=== PATIENT | male | born 1985 | race African-American/Black ===

== ENCOUNTER 2021-01-30 12:52 | Emergency (ER) | payer OTHER ==
[~2021-01-30] VITALS: Ht 182.9 cm; Wt 82.0 kg
[2021-01-30 13:52] VITALS: BP 145/97
[2021-01-30] MEDS ORDERED: TETANUS, DIPHTHERIA, PERTUSSIS VAC/PF 0.5ML (>10YR OLD) IM ONE (14:00)
[2021-01-30] MEDS ORDERED: CIPR500S3 PO (14:08)
[2021-01-30] MEDS ORDERED: CIPR500T5 MT (14:32)
== END 2021-01-30 14:40 | disposition home or self-care (01) ==
LOC: ER 13:22
DX: S91.331A Puncture wound without foreign body, right foot, initial encounter (principal); W45.0XXA Nail entering through skin, initial encounter; Y93.89 Activity, other specified; Y92.89 Other specified places as the place of occurrence of the external cause; Y99.8 Other external cause status
CPT/HCPCS: 90471; 90715; 99283

== ENCOUNTER 2022-09-04 14:39 | Emergency (ER) | payer OTHER ==
[~2022-09-04] VITALS: Ht 182.9 cm; Wt 79.0 kg
[~2022-09-04 14:39] MED LIST: CIPR500T5 MT
[2022-09-04 14:42] VITALS: O2SAT 100
[2022-09-04] MEDS ORDERED: ACETAMINOPHEN 325MG TABLET PO ONE (16:30)
[2022-09-04] MEDS ORDERED: NAPR220C61 MT (17:15)
[2022-09-04 17:53] VITALS: BP 127/90; PULSE 87; RESP 20; TEMP 98.1
== END 2022-09-04 17:58 | disposition home or self-care (01) ==
LOC: ER 14:39
DX: S09.90XA Unspecified injury of head, initial encounter (principal); M25.512 Pain in left shoulder; X58.XXXA Exposure to other specified factors, initial encounter; Y93.89 Activity, other specified; Y92.89 Other specified places as the place of occurrence of the external cause; Y99.8 Other external cause status
CPT/HCPCS: 73030; 99284

== ENCOUNTER 2023-01-04 08:56 | Emergency (ER) | payer OTHER ==
[~2023-01-04] VITALS: Ht 182.9 cm; Wt 79.0 kg
[~2023-01-04 08:56] MED LIST changes: +NAPR220C61 MT
[2023-01-04 09:16] VITALS: TEMP 97.8; O2SAT 98
[2023-01-04 10:30] VITALS: BP 141/96; PULSE 74; RESP 18
[2023-01-04] MEDS ORDERED: HYDROCODONE/ACETAMINOPHEN 7.5/325MG TABLET PO ONE (10:30)
[2023-01-04] MEDS ORDERED: NAPR-1176 MT (10:38)
[2023-01-04] MEDS ORDERED: CYCL5TAB MT (10:38)
== END 2023-01-04 11:51 | disposition home or self-care (01) ==
LOC: ER 09:07
DX: M54.2 Cervicalgia (principal); M25.512 Pain in left shoulder; F12.10 Cannabis abuse, uncomplicated
CPT/HCPCS: 99283; Z7610

== ENCOUNTER 2023-05-26 02:18 | Emergency (ER) | payer OTHER, BC ==
[~2023-05-26] VITALS: Ht 182.9 cm; Wt 82.0 kg
[~2023-05-26 02:18] MED LIST changes: +CYCL5TAB MT; +NAPR-1176 MT
[2023-05-26 02:35] VITALS: BP 173/114; PULSE 82; RESP 18; TEMP 98.6; O2SAT 100
[2023-05-26 03:06] LABS: BASOPHILS % 0.4 % (0.0-2.0); EOSINOPHILS % 1.1 % (0.0-5.0); HEMATOCRIT. 40.9 % (42.0-52.0); HEMOGLOBIN. 13.7 g/dL (14.0-18.0); LYMPHOCYTES % 39.9 % (20.0-50.0); MEAN CORPUSCULAR HEMOGLOBIN 31.4 pg (28.0-32.0); MEAN CORPUSCULAR HGB CONC 33.5 g/dL (31.0-37.0); MEAN CORPUSCULAR VOLUME 93.5 fL (80.0-94.0); MEAN PLATELET VOLUME 7.8 fl (7.4-10.4); MONOCYTES % 8.8 % (2.0-8.0); NEUTROPHILS % 49.8 % (40.0-76.0); PLATELET 201 x1000/uL (130-400); RED BLOOD CELL COUNT 4.37 mill/uL (4.7-6.1); RED CELL DISTRIBUTION WIDTH 13.3 % (11.6-14.6); WHITE BLOOD COUNT 7.2 x1000/uL (4.5-11.0)
[2023-05-26 03:23] LABS: ALANINE AMINOTRANSFERASE 8 IU/L (10-49); ALBUMIN 4.5 g/dL (3.2-4.8); ASPARTATE AMINOTRANSFERASE 15 IU/L (<34); BILIRUBIN TOTAL 0.4 mg/dL (0.1-1.0); CALCIUM 8.6 mg/dL (8.7-10.4); CARBON DIOXIDE 30 mEq/L (21-32); CHLORIDE 106 mEq/L (98-107); GLUCOSE 92 mg/dL (70-105); POTASSIUM 3.9 mEq/L (3.5-5.1); PROTEIN TOTAL 7.3 g/dL (6.0-8.3); SODIUM 139 mEq/L (136-145); TROPONIN I HIGH SENSITIVITY 5 ng/L (3.0-53); UREA NITROGEN BLOOD 22 mg/dL (9-23)
[2023-05-26 04:50] LABS: CLARITY URINE CLEAR (CLEAR); COLOR URINE YELLOW (YELLOW); GLUCOSE URINE NEGATIVE (NEGATIVE); KETONES URINE NEGATIVE (NEGATIVE); LEUKOCYTE ESTERASE URINE TRACE (NEGATIVE); NITRITE URINE NEGATIVE (NEGATIVE); OCCULT BLOOD URINE NEGATIVE (NEGATIVE); PROTEIN URINE NEGATIVE (NEGATIVE); SPECIFIC GRAVITY URINE 1.026 (1.005-1.030); UROBILINOGEN URINE 0.2 E.U./dL (0.2-1.0)
[2023-05-26 04:59] LABS: BACTERIA URINE NONE SEEN; RBC URINE NONE SEEN /hpf (0-2); SQUAMOUS EPITHELIAL CELL URINE RARE /lpf (RARE/1+); WBC URINE 0-2 /hpf (0-2)
[2023-05-26] MEDS ORDERED: CYCL5TAB MT (10:48)
[2023-05-26] MEDS ORDERED: NAPR-1176 MT (10:48)
== END 2023-05-26 08:55 | disposition home or self-care (01) ==
LOC: ER 03:33
DX: R07.89 Other chest pain (principal); M54.2 Cervicalgia; F12.10 Cannabis abuse, uncomplicated
CPT/HCPCS: 36415; 71045; 80053; 81003; 84484; 85025; 93005; 99285